=== PATIENT | male | born 1950 | race Caucasian/White ===

== ENCOUNTER 2020-12-27 21:06 | Emergency (ER) | payer MEDICAID, MEDICARE ==
[~2020-12-27] VITALS: Ht 177.8 cm; Wt 72.7 kg
[~2020-12-27 21:06] MED LIST: CEFA2PLA9 IV; CHOL500045 PO; MULT1TAB76 PO; Senna/Docusate PO; THIA100T67 PO; ZINC220C7 PO
[2020-12-27 21:11] VITALS: BP 165/85
[2020-12-27] MEDS ORDERED: LIDOCAINE 2%,20 ML JEL.PF.APP MM ONE (21:30)
[2020-12-27 22:03] LABS: MICROSCOPIC INDICATED
--- NOTE | 2020-12-27 22:32 | NUR ---
Patientgiven discharge instructions and they have confirmed that they understand the instructions. Patient ambulatory with steady gait. NAD, all questions answered appropriately, denies additional needs at this time. No personal belongings left in room after discharge.
--- NOTE | 2020-12-27 23:11 | NUR ---
PT SWITCHED TO LEG BAG. VERBALIZES UNDERSTANDING OF EMPTYING & CARE OF LI. AWARE OF F/U C URO.
== END 2020-12-27 22:48 | disposition home or self-care (01) ==
LOC: ED 21:36
DX: N40.1 Benign prostatic hyperplasia with lower urinary tract symptoms (principal); R33.8 Other retention of urine; J44.9 Chronic obstructive pulmonary disease, unspecified; Z87.11 Personal history of peptic ulcer disease; F17.200 Nicotine dependence, unspecified, uncomplicated
CPT/HCPCS: 51702; 81001; 99284

== ENCOUNTER 2021-01-11 17:58 | Emergency (ER) | payer MEDICARE ==
[~2021-01-11] VITALS: Ht 175.3 cm; Wt 70.0 kg
[2021-01-11 18:08] VITALS: BP 119/61
[2021-01-11 19:00] LABS: BASOPHILS % (AUTO) 1 % (0-1); EOSINOPHILS % (AUTO) 0 % (1-7); LYMPHOCYTES % (AUTO) 10 % (22-44); MEAN CORPUSCULAR HEMOGLOBIN 31.7 pg (27.5-34.5); MEAN CORPUSCULAR HGB CONC 33.9 g/dL (33.2-36.2); MEAN PLATELET VOLUME 8.2 fL (7.4-10.4); MONOCYTES % (AUTO) 9 % (2-9); NEUTROPHILS % (AUTO) 80 % (42-75); PLATELET COUNT 211 x10^3/uL (130-400); RED BLOOD COUNT 4.23 x10^6/uL (4.38-5.82); RED CELL DISTRIBUTION WIDTH 14.3 % (9.4-14.8)
[2021-01-11 19:11] LABS: ALBUMIN 3.7 g/dL (3.4-5.0); ANION GAP 4 mmol/L (5-15); CALCIUM 9.2 mg/dL (8.5-10.1); CHLORIDE 105 mmol/L (98-107); CREATININE 1.94 mg/dL (0.7-1.3)
[2021-01-11 19:12] LABS: SALICYLATE LEVEL < 1.7 mg/dL (2.8-20.0)
--- NOTE | 2021-01-11 19:53 | NUR ---
urine sent to lab
[2021-01-11 20:13] LABS: AMPHETAMINE SCREEN, URINE Negative (Negative); BARBITURATE SCREEN, URINE Negative (Negative); BENZODIAZEPINE SCREEN, URINE Negative (Negative); CANNABINOID SCREEN, URINE Negative (Negative); COCAINE SCREEN, URINE Negative (Negative); METHADONE SCREEN, URINE Negative (Negative); OPIATE SCREEN, URINE Negative (Negative)
--- NOTE | 2021-01-11 21:20 | NUR ---
Patient/Caregiver given discharge instructions and they have confirmed that they understand the instructions. Patient ambulatory with steady gait. NAD, all questions answered appropriately, denies additional needs at this time. No personal belongings left in room after discharge.
== END 2021-01-11 21:21 | disposition home or self-care (01) ==
LOC: ED 19:35
DX: N28.9 Disorder of kidney and ureter, unspecified (principal); Z72.9 Problem related to lifestyle, unspecified; R44.3 Hallucinations, unspecified; J44.9 Chronic obstructive pulmonary disease, unspecified; F17.210 Nicotine dependence, cigarettes, uncomplicated
CPT/HCPCS: 36415; 80048; 80299; 80307; 80320; 80329; 82040; 85025; 99283; 99406; G0480

== ENCOUNTER 2021-01-21 04:26 | Emergency (ER) | payer MEDICARE ==
[~2021-01-21] VITALS: Ht 177.8 cm; Wt 70.9 kg
[2021-01-21 04:32] VITALS: BP 122/74
--- NOTE | 2021-01-21 10:00 | NUR ---
Pt ambulatory with slow unsteady gait and use of cane from lobby to room noted. Pt changing into gown now.
--- NOTE | 2021-01-21 10:30 | NUR ---
data management associate completed. UA sample obtained after Jennings removed and cleansed from leg bag. 10 mL water removed from balloon and Jennings then D/C'd with noted brown, mucouslike growth at tip of catheter upon removal. Pt is in a state of poor hygiene with significant cleanliness issues due to homelessness. Pt notified of need to urinate without catheter prior to d/c per MD.
[2021-01-21 12:04] LABS: MICROSCOPIC INDICATED
--- NOTE | 2021-01-21 12:43 | NUR ---
Pt is standing at doorway insisting on another Jennings and demanding underwear. Pt found with urine on sheets and gown, provided a urinal, refusing to speak to this RN and insisting MD come tell him he is not getting a Jennings again.
--- NOTE | 2021-01-21 12:45 | NUR ---
now at doorway with pt yelling at MD and security requested with MD stating pt will be d/c'd.
--- NOTE | 2021-01-21 12:47 | NUR ---
Security outside room, updated to pt c/o and MD with d/c paperwork in hand. Pt refusing to leave without being escorted by security.
--- NOTE | 2021-01-21 13:00 | NUR ---
Pt yelling at security as they read him their statement of trespassing before removal. Pt did eventually leave with escort quietly.
== END 2021-01-21 13:27 | disposition home or self-care (01) ==
LOC: ED 10:00
DX: N30.00 Acute cystitis without hematuria (principal); T83.091A Other mechanical complication of indwelling urethral catheter, initial encounter; J44.9 Chronic obstructive pulmonary disease, unspecified; F17.200 Nicotine dependence, unspecified, uncomplicated
CPT/HCPCS: 81001; 87077; 87086; 87186; 99283

== ENCOUNTER 2021-01-22 00:47 | Emergency (ER) | payer MEDICARE ==
[~2021-01-22] VITALS: Ht 177.8 cm; Wt 70.8 kg
--- NOTE | 2021-01-22 04:37 | NUR ---
PT STATES YESTERDAY HE WAS HERE. PTSTATES HE HAD A CATHETER WHEN HE CAME IN YESTERDAY BUT WAS DISCHARGED WITHOUT ONE. WHEN ASKED ABOUT THIS, HE SAID "I CANT SPEAK FOR THEM, IT APPEARS THEY ARE OUT TO KILL ME." WHEN ASKED TO CLARIFY THIS, PT STATES "WHOEVER LEFT ME OUT THERE WANTS TO KILL ME. I HAVE ABOUT 30 MINUTES LEFT BEFORE YOU ." - PT STATES HE HASNT VOIDED IN OVER 24 HOURS AND THAT HE IS HERE TO GET A CATHETER. - PT DENIES MENTAL HEALTH PROBLEMS -PT DENIES SI/HI. TRIAGE NOTE
--- NOTE | 2021-01-22 04:42 | NUR ---
BLADDER SCAN SHOWED 973ML IN BLADDER PA NOTIFIED
--- NOTE | 2021-01-22 05:45 | NUR ---
PT URINE DRAINING 900ML. PT URINE APPEARS DARK YELLOW AND CLOUDY
--- NOTE | 2021-01-22 05:53 | NUR ---
SPOKE TO [employer] ASKING FOR LI CATHETER SUPPLIES. WAS TOLD THAT i NEEDED TO SEND A ORDER THROUGH [employer]
--- NOTE | 2021-01-22 06:24 | NUR ---
STRAIGHT CATH WAS PERFROMED ON EARLIER NOTE BECAUSE LI CATH SUPPLIES WERE NOT AVAILABLE. UA SENT TO LAB. MOST LI CATHETER SUPPLIES OUT OF STOCK. LI CATHETER INSERTED AND PT TOLERATED WELL.
--- NOTE | 2021-01-22 06:53 | NUR ---
gave report to leo. transfer of care
[2021-01-22 07:53] VITALS: BP 142/75
[2021-01-22 08:21] LABS: MICROSCOPIC AUTO
== END 2021-01-22 07:56 | disposition home or self-care (01) ==
LOC: ED 06:41
DX: R33.9 Retention of urine, unspecified (principal); J44.9 Chronic obstructive pulmonary disease, unspecified
CPT/HCPCS: 51702; 81001; 87077; 87086; 87186; 99284